=== PATIENT | female | born 1960 | race African-American/Black ===

== ENCOUNTER → 2016-10-05 16:22 | Outpatient (CLI) | payer BC ==
[2014-02-25 09:47] VITALS: BMI 39.4
[~2016-10-05 16:22] MED LIST: DYRENIUM50 MG PO; PRAVACHOL40 MG PO; SYNTHROID25 MCG PO
[2016-10-12 08:33] VITALS: BMI 40.8
== END | disposition home or self-care (01) ==
LOC: D.MAMMO 09-30 13:15
DX: Z12.31 Encounter for screening mammogram for malignant neoplasm of breast (principal)

== ENCOUNTER 2016-10-12 07:58 | Day surgery (SDC) | payer BC ==
[~2016-10-12] VITALS: Ht 160 cm; Wt 104.5 kg
[2016-10-12 08:33] VITALS: BP 120/82; Ht 160 cm; Wt 104.5 kg
[2016-10-12 08:45] LABS: BASOPHILS 0.1 % (0.0-2.0); EOSINOPHILS 0.3 % (0-7); IMMATURE GRANULOCYTES 0.2 % (0-5); LYMPHOCYTES 35.7 % (15-50); MCH 29.5 pg (26.0-34.0); MCHC 32.6 g/dL (31.0-37.0); MCV 90.4 fL (80.0-100.0); MEAN PLATELET VOLUME 9.9 fL (7.4-10.4); NEUTROPHILS 56.7 % (40-80); PLATELET COUNT 313 10x3/uL (130-400); RBC 5.09 10x6/uL (4.00-5.40); RDW 14.1 % (11.5-14.5); WBC 10.3 10x3/uL (4.8-10.8)
[2016-10-12 08:49] LABS: ANION GAP 15.1 mmol/L (8-16); CALCIUM 9.9 mg/dL (8.5-10.1); CARBON DIOXIDE 28.4 mmol/L (21.0-32.0); CREATININE - SERUM 1.3 mg/dL (0.6-1.3); POTASSIUM - SERUM 3.5 mmol/L (3.5-5.1)
--- NOTE | 2016-10-12 13:45 | NUR ---
DR GENAO IN TO SEE PATIENT, PATIENT DRESSED IN PERSONAL CLOTHING AND STANDING IN BATHROOM, DR GENAO GIVES PATIENT REPORT OF COLONOSCOPY FINDINGS OF 3 SMALL POLYPS, DC INSTRUCTIONS GIVEN TO PATIENT BY THIS NURSE. DISCHARGED HOME VIA WHEELCHAIR TO PRIVATE VEHICLE WITH SPOUSE
--- NOTE | 2016-11-24 10:17 | HP ---
PATIENT: ENRIQUE MAGALLANES MEDICAL RECORD: [id number] ACCOUNT: [id number] LOCATION:[facility] : 64 ADMISSION DATE: 10/12/16 HISTORY AND PHYSICAL EXAMINATION CHIEF COMPLAINT: History of colon polyps. HISTORY OF PRESENT ILLNESS: The patient has history of colon polyps. She had no abdominal pain. No rectal bleeding. She is here for surveillance colonoscopy. PAST MEDICAL AND SURGICAL HISTORY: She had a heart catheterization 5 years ago, which was normal, hypertension, hypothyroidism, on replacement therapy, history thyroidectomy, and bilateral tubal ligation. ALLERGIES: PENICILLIN, WHICH CAUSES ITCHING RASH, NAUSEA AND VOMITING. HOME MEDICINES: Pravachol and dyrenium. REVIEW OF SYSTEMS: Negative for CVA or seizures. Negative for renal disease or hepatitis. Negative for angina or myocardial infarction. Review of systems is negative other than as described above. PHYSICAL EXAMINATION: GENERAL: The patient does not appear acutely ill. She does not appear chronically ill. VITAL SIGNS: Reviewed. HEAD: External ears appear normal. EYES: Extraocular movements are intact. NECK: Trachea is midline. CHEST: No intercostal retractions. PULMONARY: Nonlabored and no stridor. ABDOMEN: No peritonitis with movement. IMPRESSION: History of colon polyps. PLAN: Colonoscopy. TRANSINT:[id number] Voice Confirmation ID: [id number] DOCUMENT ID: [id number] THONY GENAO MD at 1017 CC: TEJAS GRANDE DO [id number] DICTATION DATE: 10/12/16 1216 HR ANALYST: 10/12/[address] [facility] 10/12/[address] [id number]
== END 2016-10-12 13:45 | disposition home or self-care (01) ==
LOC: D.OPS 07:58
PROVIDERS: Anesthesiology
DX: Z12.11 Encounter for screening for malignant neoplasm of colon (principal); D12.3 Benign neoplasm of transverse colon; K63.5 Polyp of colon; I10 Essential (primary) hypertension; E03.9 Hypothyroidism, unspecified; Z79.899 Other long term (current) drug therapy; Z88.0 Allergy status to penicillin

== ENCOUNTER → 2018-09-01 16:21 | Outpatient (CLI) | payer BC ==
[2016-10-12 08:33] VITALS: BMI 40.8
== END | disposition home or self-care (01) ==
LOC: D.MAMMO 08:00
DX: Z12.31 Encounter for screening mammogram for malignant neoplasm of breast (principal)

== ENCOUNTER 2019-07-19 08:00 | Outpatient (CLI) | payer BC ==
[2016-10-12 08:33] VITALS: BMI 40.8
== END 2019-07-19 23:59 | disposition home or self-care (01) ==
LOC: D.MAMMO 08:00
PROVIDERS: ATTEND Family Medicine
DX: N63.21 Unspecified lump in the left breast, upper outer quadrant (principal)

== ENCOUNTER 2020-11-21 15:35 | Outpatient (CLI) | payer BC ==
[2019-11-13 11:36] VITALS: BMI 39.5
[~2020-11-21 15:35] MED LIST changes: +CRESTOR20 MG PO; +GLUCOPHAGE500 MG PO; +LEVO-T137 MCG PO
== END 2020-11-21 23:59 | disposition home or self-care (01) ==
LOC: D.MAMMO 15:35
PROVIDERS: ATTEND Family Medicine
DX: Z12.31 Encounter for screening mammogram for malignant neoplasm of breast (principal)

== ENCOUNTER 2021-01-29 18:28 | Emergency (ER) | payer BC ==
[~2021-01-29] VITALS: Ht 160 cm; Wt 97.7 kg
[2021-01-29 18:40] VITALS: Ht 160 cm; Wt 97.7 kg
[2021-01-29] MEDS ORDERED: GLIPIZIDE5 MG PO (18:42)
[2021-01-29 20:32] VITALS: BP 154/62
== END 2021-01-29 20:32 | disposition home or self-care (01) ==
LOC: D.ER 18:28
DX: S00.03XA Contusion of scalp, initial encounter (principal); E11.9 Type 2 diabetes mellitus without complications; I10 Essential (primary) hypertension; Z79.84 Long term (current) use of oral hypoglycemic drugs; V03.99XA Pedestrian with other conveyance injured in collision with car, pick-up truck or van, unspecified whether traffic or nontraffic accident, initial encounter; Y93.9 Activity, unspecified; Y92.9 Unspecified place or not applicable